=== PATIENT | male | born 1980 | race Caucasian/White ===

== ENCOUNTER 2017-10-31 09:35 | Emergency (ER) | payer OTHER ==
[~2017-10-31] VITALS: Ht 188 cm; Wt 106.6 kg
[~2017-10-31 09:35] MED LIST: IBUP800 PO; METH40 PO; RISP1 PO; Robaxin-750750 MG PO
[2017-10-31] MEDS ORDERED: Veetids 500500 MG PO (10:22)
[2017-10-31] MEDS ORDERED: Zofran Odt4 MG SL (10:29)
[2017-10-31] MEDS ORDERED: IBUP800 PO (10:29)
== END 2017-10-31 10:30 | disposition home or self-care (01) ==
LOC: ER 09:35
DX: Z20.818 Contact with and (suspected) exposure to other bacterial communicable diseases (principal); Z79.899 Other long term (current) drug therapy; Z79.2 Long term (current) use of antibiotics; F31.9 Bipolar disorder, unspecified; F17.220 Nicotine dependence, chewing tobacco, uncomplicated
CPT/HCPCS: 99283

== ENCOUNTER → 2017-11-04 | Outpatient (CLI) | payer OTHER ==
[~2017-11-04] MED LIST changes: +Veetids 500500 MG PO; +Zofran Odt4 MG SL
[2017-11-04 13:10] LABS: U Amphetamine Screen DETECTED
[2017-11-04 13:11] LABS: U Barbituate Screen Not Detected; U Benzodiazapine Screen Not Detected; U Buprenorphine Screen Not Detected; U Cannabinoids Screen Not Detected; U Cocaine Screen Not Detected; U Methadone Screen DETECTED; U Methamphetamine Screen Not Detected; U Opiates Screen Not Detected; U Oxycodone Screen Not Detected; U Phencyclidine Screen Not Detected; U Propoxyphene Screen Not Detected
== END ==
LOC: LAB 10:30
PROVIDERS: Midwife
DX: Z51.81 Encounter for therapeutic drug level monitoring (principal); Z79.899 Other long term (current) drug therapy

== ENCOUNTER → 2017-12-03 | Outpatient (CLI) | payer OTHER ==
[2017-12-03 14:07] LABS: U Amphetamine Screen DETECTED; U Barbituate Screen Not Detected; U Benzodiazapine Screen Not Detected; U Cocaine Screen Not Detected; U Methadone Screen DETECTED; U Methamphetamine Screen Not Detected; U Opiates Screen Not Detected; U Phencyclidine Screen Not Detected
[2017-12-03 14:08] LABS: U Buprenorphine Screen Not Detected; U Cannabinoids Screen Not Detected; U Oxycodone Screen Not Detected; U Propoxyphene Screen Not Detected
== END ==
LOC: LAB 12:48
PROVIDERS: Midwife
DX: Z51.81 Encounter for therapeutic drug level monitoring (principal); Z79.899 Other long term (current) drug therapy

== ENCOUNTER → 2017-12-30 | Outpatient (CLI) | payer OTHER ==
[2017-12-30 15:42] LABS: U Amphetamine Screen DETECTED; U Barbituate Screen Not Detected; U Benzodiazapine Screen Not Detected; U Buprenorphine Screen Not Detected; U Cannabinoids Screen Not Detected; U Cocaine Screen Not Detected; U Methadone Screen DETECTED; U Methamphetamine Screen Not Detected; U Opiates Screen Not Detected; U Oxycodone Screen Not Detected; U Phencyclidine Screen Not Detected; U Propoxyphene Screen Not Detected
== END ==
LOC: LAB 14:49
PROVIDERS: Midwife
DX: Z13.9 Encounter for screening, unspecified (principal); Z79.899 Other long term (current) drug therapy

== ENCOUNTER → 2018-08-02 | Outpatient (CLI) | payer OTHER ==
[2018-08-02 19:03] LABS: U Amphetamine Screen DETECTED; U Barbituate Screen Not Detected; U Benzodiazapine Screen Not Detected; U Buprenorphine Screen Not Detected; U Cannabinoids Screen Not Detected; U Cocaine Screen Not Detected; U Methadone Screen DETECTED; U Methamphetamine Screen Not Detected; U Opiates Screen Not Detected; U Oxycodone Screen Not Detected; U Phencyclidine Screen Not Detected; U Propoxyphene Screen Not Detected
== END ==
LOC: LAB SHORT 16:40 → LAB 16:40
PROVIDERS: Psychiatry & Neurology Psychiatry
DX: Z51.81 Encounter for therapeutic drug level monitoring (principal); Z79.899 Other long term (current) drug therapy

== ENCOUNTER 2019-07-14 19:58 | Emergency (ER) | payer OTHER ==
[~2019-07-14] VITALS: Ht 188 cm; Wt 119.8 kg
[2019-07-14] MEDS ORDERED: Minipress1 MG PO (20:07)
[2019-07-14] MEDS ORDERED: RISP.5 PO (20:07)
[2019-07-14] MEDS ORDERED: INVEGA SUS156 MG/1 M IM (20:07)
[2019-07-14] MEDS ORDERED: BUPRENORPHIN-N1 EACH SL (20:07)
[2019-07-14] MEDS ORDERED: CYCL10 PO (21:34)
== END 2019-07-14 21:59 | disposition home or self-care (01) ==
LOC: ER 19:58
DX: M62.838 Other muscle spasm (principal); F31.9 Bipolar disorder, unspecified; F17.290 Nicotine dependence, other tobacco product, uncomplicated; Z79.899 Other long term (current) drug therapy; V49.50XA Passenger injured in collision with unspecified motor vehicles in traffic accident, initial encounter
CPT/HCPCS: 99283

== ENCOUNTER 2019-11-16 21:41 | Emergency (ER) | payer OTHER ==
[~2019-11-16] VITALS: Ht 188 cm; Wt 117.9 kg
[~2019-11-16 21:41] MED LIST changes: +BUPRENORPHIN-N1 EACH SL; +CYCL10 PO; +INVEGA SUS156 MG/1 M IM; +Minipress1 MG PO; +RISP.5 PO
[2019-11-16 22:16] LABS: BASOPHILS ABSOLUTE AUTO 0.02 K/mm3 (0.00-0.23); BASOPHILS PERCENT AUTO 0 % (0-2); EOSINOPHILS ABSOLUTE AUTO 0.15 K/mm3 (0.00-0.68); EOSINOPHILS PERCENT AUTO 2 % (0-6); Hematocrit 43.7 % (37.0-53.0); Hemoglobin 14.9 g/dL (13.5-17.5); IMMATURE GRAN ABSOLUTE AUTO 0.02 K/mm3 (0.00-0.10); IMMATURE GRAN PERCENT AUTO 0 % (0-1); LYMPHOCYTES ABSOLUTE AUTO 2.02 K/mm3 (0.84-5.20); LYMPHOCYTES PERCENT AUTO 32 % (21-46); MONOCYTES ABSOLUTE AUTO 0.46 K/mm3 (0.16-1.47); MONOCYTES PERCENT AUTO 7 % (4-13); Mean Corpuscular HGB 28.9 pg (26.0-34.0); Mean Corpuscular HGB Conc 34.1 g/dL (31.5-36.5); Mean Corpuscular Volume 85 fL (80-100); Mean Platelet Volume 9.8 fL (9.1-12.4); NEUTROPHILS ABSOLUTE AUTO 3.72 K/mm3 (1.96-9.15); NEUTROPHILS PERCENT AUTO 58 % (41-73); Platelet Count 190 K/mm3 (150-400); RDW Coefficient Variation 12.2 % (11.7-14.2); RDW Standard Deviation 37.8 fL (35.1-46.3); Red Blood Cell Count 5.16 M/mm3 (4.30-5.90); White Blood Cell Count 6.39 K/mm3 (4.00-11.30)
[2019-11-16 22:40] LABS: Albumin, Blood 3.8 g/dL (3.4-5.0); Bilirubin, Total 0.3 mg/dL (0.1-1.0); Bun/Creatinine Ratio 14.7 (12.0-20.0); Calcium, Blood 9.1 mg/dL (8.5-10.1); Creatinine, Blood 1.56 mg/dL (0.60-1.20); Total Protein, Blood 7.8 g/dL (6.4-8.2)
[2019-11-16 23:05] LABS: Source, Urine Clean Catch
[2019-11-16 23:20] LABS: Bilirubin, Urine Neg (Neg); Blood, Urine 5+ (Neg); Glucose Qualitative, Urine Neg (Neg); Ketones, Urine Neg (Neg); Leukocyte Esterase, Urine Neg (Neg); Nitrite, Urine Neg (Neg); Protein, Urine Neg (Neg); Specific Gravity, Urine 1.025 (1.003-1.022); Urobilinogen, Urine NORM (Normal)
[2019-11-16 23:50] LABS: Appearance, Urine Clear (Clear); Color, Urine Yellow (P-Yellow); Red Blood Cells, Urine TNTC /hpf (0-2); Squamous Epithelial Cells Not Seen /hpf (Few); White Blood Cells, Urine Not Seen /hpf (0-5)
[2019-11-16 23:51] LABS: Bacteria Not Seen /hpf; Mucus Light (0-Heavy)
[2019-11-17] MEDS ORDERED: Norco 5-325 Ta1 EACH PO (00:40)
[2019-11-17] MEDS ORDERED: ONDA4ODT MM ×2 (00:40→00:45)
[2019-11-17] MEDS ORDERED: KETO10 PO ×2 (00:44→00:45)
== END 2019-11-17 00:55 | disposition home or self-care (01) ==
LOC: ER 21:41
PROVIDERS: Physician Assistant
DX: N13.2 Hydronephrosis with renal and ureteral calculous obstruction (principal); F31.9 Bipolar disorder, unspecified; F17.290 Nicotine dependence, other tobacco product, uncomplicated; Z79.899 Other long term (current) drug therapy
CPT/HCPCS: 36415; 74176; 80053; 81001; 83690; 85025; 96374; 96375; 99284-25; A9270; A9270-GY; J1885; J2405

== ENCOUNTER 2021-08-21 19:15 | Emergency (ER) | payer OTHER ==
[~2021-08-21] VITALS: Ht 188 cm; Wt 120.2 kg
[~2021-08-21 19:15] MED LIST changes: +KETO10 PO; +Norco 5-325 Ta1 EACH PO; +ONDA4ODT MM
== END 2021-08-21 20:30 | disposition left against medical advice (07) ==
LOC: ER 19:15
DX: Z53.21 Procedure and treatment not carried out due to patient leaving prior to being seen by health care provider (principal)
CPT/HCPCS: 99281